=== PATIENT | male | born 1975 | race Caucasian/White ===

== ENCOUNTER 2017-08-23 18:30 | Emergency (ER) | payer OTHER ==
[~2017-08-23] VITALS: Ht 180.3 cm; Wt 93.4 kg
[~2017-08-23 18:30] MED LIST: GILTUSS TR TAB1 EACH PO; IMODIUM A-D2 MG PO; PROVENTIL3 ML/2.5 M IH
[2017-08-23] MEDS ORDERED: LOSARTAN POTASS25 MG PO (21:47)
== END 2017-08-23 22:09 | disposition home or self-care (01) ==
LOC: ER 18:30
DX: I10 Essential (primary) hypertension (principal)

== ENCOUNTER 2023-01-17 09:09 | Emergency (ER) | payer OTHER ==
[~2023-01-17] VITALS: Ht 180.3 cm; Wt 83.9 kg
[~2023-01-17 09:09] MED LIST changes: +LOSARTAN POTASS25 MG PO
[2023-01-17] MEDS ORDERED: CEPHALEXIN500 MG PO (10:45)
== END 2023-01-17 10:54 | disposition home or self-care (01) ==
LOC: ER 09:09
DX: S61.210A Laceration without foreign body of right index finger without damage to nail, initial encounter (principal); W26.0XXA Contact with knife, initial encounter; Y93.89 Activity, other specified; Y92.018 Other place in single-family (private) house as the place of occurrence of the external cause; Y99.9 Unspecified external cause status

== ENCOUNTER 2024-03-03 11:05 | Emergency (ER) | payer OTHER ==
[~2024-03-03] VITALS: Ht 180.3 cm; Wt 86.2 kg
[~2024-03-03 11:05] MED LIST changes: +CEPHALEXIN500 MG PO; +NASAL MIST126 ML
[2024-03-03 12:21] LABS: HEMOGLOBIN 13.9 g/dL (13-16.00); MEAN CORPUSCULAR HEMOGLOBIN 27.5 pg (27.00-32.0); MEAN CORPUSCULAR HGB CONC 34.8 g/dl (32.0-36.0); PLATELET COUNT 271 K/uL (150-450); RED BLOOD COUNT 5.06 M/uL (4.00-6.00); RED CELL DISTRIBUTION WIDTH 13.4 % (11.5-14.5)
[2024-03-03 12:40] LABS: CALCIUM 9.2 mg/dL (8.5-10.1); CREATININE SERUM 0.72 mg/dL (0.70-1.30); GFR 116.03; POTASSIUM 4.25 mEq/L (3.5-5.1)
== END 2024-03-03 12:56 | disposition home or self-care (01) ==
LOC: ER 11:07
PROVIDERS: General Practice
DX: B34.9 Viral infection, unspecified (principal); Z20.822 Contact with and (suspected) exposure to COVID-19